=== PATIENT | male | born 1980 | race Native Hawaiian/Other Pacific Islander ===

== ENCOUNTER 2017-09-21 11:10 | Emergency (ER) | payer OTHER ==
[~2017-09-21] VITALS: Ht 175.3 cm; Wt 68.0 kg
--- NOTE | ~2017-09-21 | EKG ---
[facility] [place] [address] ELECTROCARDIOGRAM REPORT Name: FARIHA BRAVO Room #: DEP [facility]ENTERKiraKira#: [id number] Admission: 09/21/17 Attend Phys: Discharge: 09/21/17 Date of : 76 Report #: [id number] THIS REPORT FOR: //name// [facility] ED Test Date: 2017-09-21 Test Time: 11:46:09 Pat Name: FARIHA BRAVO Department: Room: Gender: [employer]: Adalberto RAYA : 1980 Requested By: Eliza Cornell Order Number: [id number] MD: Isidro Trevizo Measurements Intervals [place] Rate: 51 P: -23 NM: 163 QRS: 57 QRSD: 94 T: 22 QT: 404 QTc: 373 Interpretive Statements Sinus bradycardia ST elev, probable normal early repol pattern No previous ECG available for comparison Electronically Signed On 09-21-2017 14:12:29 CDT by Isidro Trevizo [email or web address] <ELECTRONICALLY SIGNED> By: Isidro Trevizo MD, [facility] 09/21/17 1412 1146 1146 Isidro Trevizo MD, FAC /EPI
[2017-09-21 11:57] LABS: ABSOLUTE NEUTROPHILS 2.6 thou/uL (1.4-8.2); BASOPHILS 0.9 % (0.0-2.0); EOSINOPHILS 2.3 % (0.0-3.0); HEMATOCRIT 44.9 % (42.0-52.0); HEMOGLOBIN 15.6 gm/dL (14.0-18.0); LYMPHOCYTES 35.6 % (24.0-44.0); MCH 31.2 pg (26.0-34.0); MCHC 34.8 g/dL (28.0-37.0); MCV 89.7 fL (80.0-100.0); MONOCYTES 7.5 % (1.0-8.0); PLATELET COUNT 188 thou/uL (150-400); POLYS 53.7 % (36.0-66.0); RBC 5.01 mil/uL (4.50-6.00); RDW 12.9 % (10.5-14.5); WBC 4.8 thou/uL (4.0-11.0)
[2017-09-21 12:05] LABS: ANION GAP 7 mmol/L (7-16); BUN 16 mg/dL (7-18); CALCIUM 8.9 mg/dL (8.5-10.1); CHLORIDE 106 mmol/L (98-107); CO2 28 mmol/L (21-32); CREATININE 0.9 mg/dL (0.7-1.3); GLUCOSE 96 mg/dL (74-106); POTASSIUM 4.2 mmol/L (3.5-5.1); SODIUM 141 mmol/L (136-145)
[2017-09-21 12:10] LABS: TROPONIN-I <0.06 ng/mL (<0.06)
[2017-09-21] MEDS ORDERED: PRILOSEC 20 MG20 MG PO (12:31)
[2017-09-21 13:04] VITALS: BP 121/65
== END 2017-09-21 13:07 | disposition home or self-care (01) ==
LOC: ER 11:10
PROVIDERS: Emergency Medicine
DX: R07.9 Chest pain, unspecified (principal)